=== PATIENT | female | born 2005 | race Caucasian/White ===

== ENCOUNTER 2023-08-04 15:54 | Emergency (ER) | payer BC, SELFPAY ==
--- NOTE | 2023-08-04 15:56 | XR_ITS ---
[facility] [id number] Patient Name: CARLOS KENNEDY MRN: [id number] date: 2005 Sex: F Assigned Patient Location: ER Current Patient Location: ER Accession/Order Number: [id number] Exam Date: 08/04/2023 14:00 Report Date: 08/04/2023 16:28 At the request of: BHARATHI CHU Procedure: XR ankle LT min 3V EXAM: XR ankle LT min 3V TECHNIQUE: AP, lateral and oblique views left ankle HISTORY: Fall, twisted ankle COMPARISON: None. FINDINGS: No acute fracture or dislocation. Ankle mortise is aligned. No arthritic changes. XR/XR ankle LT min 3V IMPRESSION: No acute fracture or dislocation. Electronically authenticated by: GORDO REHMAN Date: 08/04/2023 16:28
[2023-08-04 15:57] VITALS: BP 143/91; PULSE 102; TEMP 36.4; O2SAT 98; BMI 56.4
--- NOTE | 2023-08-04 15:58 | ED.LOWEXI1 ---
HPI HPI - Extremity Injury (Lower) General Chief Complaint: Extremity Injury, Lower Stated Complaint: Lower Extremity Injury Time Seen by Provider: 08/04/23 15:56 History of Present Illness HPI Narrative: 17-year-old female presents for left lateral ankle pain. She was at home and she fell and she twisted her ankle. She did not hit her head. She points to the lateral malleolus to indicate the area of most pain. She states it is severe. Related Data Home Medications ?Medication ?Instructions ?Recorded ?Confirmed levetiracetam 500 mg tablet mg PO 08/04/23 Allergies Allergy/AdvReac Type Severity Reaction Status Date / Time Latex, Natural Rubber Allergy Severe Verified 08/04/23 15:57 Opioid HPI Opioid Management Most Recent Pain and Opioid Data: No Data to Display Review of Systems ROS Narrative A ten point review of systems is negative except as noted above. Exam Narrative Exam Narrative: Nurses note and vital signs reviewed and patient is not hypoxic. General: The patient appears in no apparent distress. Skin: Warm, dry, no pallor noted. There is no rash noted. Head: Normocephalic, atraumatic Eye: Normal conjunctiva, no drainage Ears, Nose, Mouth, and Throat: oral mucosa is moist. Nares patent. Cardiovascular: Regular Rate and Rhythm Respiratory: Patient is in no distress, no accessory muscle use Back: non-tender GI: Soft and nontender Musculoskeletal: Her foot and ankle are examined. She seems to have some tenderness of the lateral malleolus. Skin intact and there is no obvious swelling. No tenderness in the fifth metatarsal area or elsewhere on her foot. Neurological: A&O, normal speech Psychiatric: Cooperative MDM - Extremity Injury (Lower) MDM Narrative Medical decision making narrative: X-rays of hip knee and ankle are all negative per radiologist. Timothy wrap applied to ankle. Application checked by me and found to be appropriate, she is neurovascular intact. She is able to be discharged home. Treatment diagnosis and follow-up were discussed with the patient. Differential Diagnosis Differential diagnosis: Likely ankle sprain and strain and other (Contusions, knee sprain, hip contusion) Imaging Data Ankle x-ray: Radiologist's impression: ITS Impressions Ankle X-Ray 08/04/23 15:56 IMPRESSION: No acute fracture or dislocation. Electronically authenticated by: GORDO REHMAN Date: 08/04/2023 16:28 Hip X-Ray 08/04/23 16:16 IMPRESSION: No acute findings. Electronically authenticated by: GORDO REHMAN Date: 08/04/2023 17:28 Knee X-Ray 08/04/23 16:16 IMPRESSION: No fracture Electronically authenticated by: GORDO REHMAN Date: 08/04/2023 17:27 Discharge Plan Discharge Stand Alone Forms: Portal Instructions Chief Complaint: Extremity Injury, Lower Clinical Impression: Left ankle sprain Patient Disposition: Home, Self-Care Time of Disposition Decision: 17:41 Condition: Good Mode of Transportation: Private Vehicle Prescriptions / Home Meds: No Action levetiracetam 500 mg tablet PO Print Language: Amharic Instructions: Ankle Sprain (ED) Referrals: Physician,Non-Staff, MD [Primary Care Provider] - 1 week
--- NOTE | 2023-08-04 16:16 | XR_ITS ---
[facility] [id number] Patient Name: CARLOS KENNEDY MRN: [id number] date: 2005 Sex: F Assigned Patient Location: ER Current Patient Location: ER Accession/Order Number: [id number] Exam Date: 08/04/2023 16:42 Report Date: 08/04/2023 17:28 At the request of: BHARATHI CHU Procedure: XR hip LT min 2V EXAM: XR hip LT min 2V TECHNIQUE: AP and lateral views left hip HISTORY: fall COMPARISON: None. FINDINGS: No acute fracture or dislocation. Soft tissues are unremarkable. There are no arthritic changes. XR/XR hip LT min 2V IMPRESSION: No acute findings. Electronically authenticated by: GORDO REHMAN Date: 08/04/2023 17:28
--- NOTE | 2023-08-04 16:16 | XR_ITS ---
[facility] [id number] Patient Name: CARLOS KENNEDY MRN: [id number] date: 2005 Sex: F Assigned Patient Location: ER Current Patient Location: ER Accession/Order Number: [id number] Exam Date: 08/04/2023 16:42 Report Date: 08/04/2023 17:27 At the request of: BHARATHI CHU Procedure: XR knee LT 3V EXAM: XR knee LT 3V TECHNIQUE: AP, lateral and oblique views left knee HISTORY: fall COMPARISON: None. FINDINGS: No acute fracture or dislocation. Soft tissues are unremarkable. No arthritic changes. XR/XR knee LT 3V IMPRESSION: No fracture Electronically authenticated by: GORDO REHMAN Date: 08/04/2023 17:27
--- NOTE | 2023-08-04 16:17 | PC.NURSE ---
Patient tripped on steps at home and has pain to left hip,, knee, and ankle. Left ankle swollen with bruising noted to outer ankle. Ice packs applied to areas.
[2023-08-04 17:48] VITALS: BP 110/80; PULSE 96; O2SAT 98
== END 2023-08-04 19:02 | disposition home or self-care (01) ==
PROVIDERS: Emergency Provider Emergency Medicine
DX: S93.402A Sprain of unspecified ligament of left ankle, initial encounter (principal); X50.1XXA Overexertion from prolonged static or awkward postures, initial encounter; Z79.899 Other long term (current) drug therapy
CPT/HCPCS: 73502; 73562; 73610; 99283